=== PATIENT | female | born 1970 | race Asian ===

== ENCOUNTER 2019-10-05 10:20 | Emergency (ER) | payer SELFPAY ==
[~2019-10-05] VITALS: Ht 152.4 cm; Wt 69.9 kg
[2019-10-05 10:22] VITALS: BP 119/46
--- NOTE | 2019-10-05 10:31 | NUR ---
PT AMBULATED TO BED 02.
--- NOTE | 2019-10-05 10:58 | NUR ---
PT C/O FEVER X 3 DAYS, -COUGH, -SOB, -RUNNY NOSE, -N/V/D, NO RECENT TRAVELING OR SICK CONTACT. LAST TYLENOL @ 8AM. PATIENT STATES PAIN OF 0/10 AT THIS TIME; VSS; PATIENT POSITIONED FOR COMFORT; HOB ELEVATED; BEDRAILS UP X1; BED DOWN. ER MD MADE AWARE OF PT STATUS.
[2019-10-05 12:22] VITALS: BP 115/49
--- NOTE | 2019-10-05 12:22 | NUR ---
Patient discharged with v/s stable. Written and verbal after care instructions given and explained. Patient verbalized understanding. Ambulatory with steady gait. All questions addressed prior to discharge. Advised to follow up with PMD.
== END 2019-10-05 12:22 | disposition home or self-care (01) ==
LOC: MED 10:20
DX: R50.9 Fever, unspecified (principal); E11.9 Type 2 diabetes mellitus without complications
CPT/HCPCS: 82948; 87804; 99283